=== PATIENT | female | born 1950 | race Caucasian/White ===

== ENCOUNTER 2022-03-25 08:39 | Outpatient (CLI) | payer MEDICARE, BC, SELFPAY | END 2022-03-25 08:40 | disposition home or self-care (01) | LOC: LAB 08:40 | PROVIDERS: PCP Family Medicine; Visit Provider Orthopaedic Surgery | DX: Z01.818 Encounter for other preprocedural examination (principal); Z20.822 Contact with and (suspected) exposure to COVID-19 | CPT/HCPCS: 36415; 86850; 86900; 86901 ==

== ENCOUNTER 2022-03-27 08:05 | Day surgery (SDC) | payer MEDICARE, BC, SELFPAY ==
[2022-03-27] VITALS (21 sets, daily range): BP systolic 80–134; BP diastolic 41–78; PULSE 49–79; RESP 14–18; TEMP 35.9–36.7; O2SAT 96–100; BMI 27.2
[2022-03-27] MEDS: ACETAMINOPHEN 500 MG TABLET 1000 MG PO ×2 (08:40→17:47)
[2022-03-27] MEDS: OXYCODONE (CR) 10 MG TAB.ER.12H PO (08:40)
[2022-03-27] MEDS: CELECOXIB 200 MG CAPSULE PO ×2 (08:40→21:19)
[2022-03-27] MEDS: SODIUM CHLORIDE 0.9 % (FLUSH) 10 ML SYRINGE IVF (08:43)
[2022-03-27] MEDS: LACTATED RINGERS 1000 ML 1,000 ML 100 ML IV ×2 (08:43→13:17)
[2022-03-27] MEDS: MIDAZOLAM HCL 1 MG/ML inj IVP (10:03)
[2022-03-27] MEDS: fentaNYL 100 MCG/2 ML inj IVP (10:03)
--- NOTE | 2022-03-27 10:11 | SUR.PREOP ---
TIME?OUT:?1000 PT/RN/MDA?VERIFICATION?OF?SURGICAL?SITE,?PROCEDURE,?AND?CONSENT OBTAINED?PRIOR?TO?INVASIVE?PROCEDURE.
--- NOTE | 2022-03-27 10:18 | W.PM.NB ---
Nerve Block Nerve Block Time Seen by Provider: 10:07 Date Seen: 03/27/22 Type of block requested by surgeon for post-operative analgesia: MAURILIO/LFCN Side: right Time out performed: Yes Verification of patient name: Yes Verification of date of : Yes Site marking: site marked Name of person performing procedure: Angel Continuous monitoring Was continuous monitoring of O2 sat, B/P, collections analyst, recorded every 15 minutes?: Yes Procedure Checklist: sterile prep, needles and gloves Ultrasound guided. Images saved: Yes Medications given in 5ml increments after negative aspiration: Ropivicaine %: 0.5 mL: 30 Needle gauge: 20 Decadron (mg): 10 Precedex (mcg): 25 Patient tolerated procedure well: Yes Additional comments: Needle noted below psoas tendon needle noted adjacent to LFCN Block Charges Block Charge (with Pro Fee): Other Periph Nerve Block Use of Ultrasound Machine for Block: Yes- US Guidance/pain block
--- NOTE | 2022-03-27 10:19 | W.ANESCHARGE ---
Anesthesia Charges Start Date/Time Anesthesia Start Date: 03/27/22 Anesthesia Start Time: 11:09 Stop Date/Time Anesthesia Stop Date: 03/27/22 Anesthesia Stop Time: 13:37 Summary Emergency: No Extremes of Age: Over 72-CPT [id number]
--- NOTE | 2022-03-27 11:00 | CRLHL7_ITS ---
For Patients: As a result of the Century Cures Act, medical imaging exams and procedure reports are released immediately into your electronic medical record. You may view this report before your referring provider. If you have questions, please contact your health care provider. INDICATION: Right hip arthroplasty. TECHNIQUE: Fluoroscopically guided intraoperative evaluation of the right hip. FINDINGS: Two portable spot images of the right hip were obtained intraoperatively. There is a right hip arthroplasty. The components are adequately aligned and well seated. 73.6 seconds fluoroscopy time utilized. IMPRESSION: 73.6 seconds fluoroscopy time utilized intraoperatively at the time of a right hip arthroplasty. Dictated by Kevan Bates MD @ 03/27/2022 2:08:31 PM (Electronically Signed)
[2022-03-27] MEDS: CEFAZOLIN 2 GM INJ IVP (11:18)
--- NOTE | 2022-03-27 13:05 | CRLHL7_ITS ---
For Patients: As a result of the Century Cures Act, medical imaging exams and procedure reports are released immediately into your electronic medical record. You may view this report before your referring provider. If you have questions, please contact your health care provider. INDICATION: Follow up a right hip arthroplasty. TECHNIQUE: AP view of the lower pelvis and hips. Cross-table lateral view of the right hip. FINDINGS: Right hip arthroplasty. The components are adequately aligned and well seated. Air within the soft tissues and joint space related to the surgery. There is an older left hip arthroplasty. IMPRESSION: Postsurgical change from a new right hip arthroplasty. The components are adequately aligned and well seated. Dictated by Kevan Bates MD @ 03/27/2022 2:09:37 PM (Electronically Signed)
--- NOTE | 2022-03-27 13:07 | PM.ORPRC ---
Procedure Note Date of procedure: 03/27/22 Procedure: PREOPERATIVE DIAGNOSIS: Right hip osteoarthritis POSTOPERATIVE DIAGNOSIS: Right hip osteoarthritis NAME OF OPERATION: Right total hip arthroplasty SURGEON: Gaudencio Rodríguez MD SAP BASIS ARCHITECT: Demond Burden PA-C, CALVIN Bran IMPLANTS: 1. [employer] [place] # 52 sector ingrowth cup 2. 36 x 52 +4 neutral polyethylene 3. [place] # 11, short neck collared ingrowth stem 4. 36 + 1.5 ceramic femoral head ANESTHESIA: General ESTIMATED BLOOD LOSS: 450 cc COMPLICATIONS: None SPECIMENS: None DRAINS: None PREOPERATIVE ANTIBIOTICS: Ancef 2 grams INDICATIONS: The patient is a 72-year-old with a longstanding history of severe, unrelenting right hip pain secondary to end-stage right hip osteoarthritis. Despite appropriate nonoperative management, including activity modification, use of an assist device, anti-inflammatories, [id number] pain medication, physical therapy and injections, they continue to have pain and disability. Operative intervention was offered. The risks, benefits and expected outcomes were discussed in detail. These included but were not limited to: Infection, bleeding, injury to blood vessel or nerve, venous thromboembolism. All questions were answered to their satisfaction. Use of an certified pathology assistant was necessary throughout the case for patient positioning and safety, soft tissue retraction and closure. PROCEDURE: The patient was placed supine on the [place] table. General anesthesia was administered. The certified pathology assistant made sure the patient was properly positioned. The right hip was prepped and draped in the usual sterile fashion. The image intensifier was brought in for a perfect AP pelvis and a perfect double tear drop AP view of each hip which were used for intraoperative templating with our fluoroscopic guide. An oblique incision was made 3 cm distal and 3 cm lateral to the anterior superior iliac spine. The certified pathology assistant retracted the soft tissues to protect them. Subcutaneous dissection was taken with electrocautery to the superficial fascia. The fascia was divided in line with the incision. Blunt dissection was carried medially to the tensor fascia paddy and sartorius interval. Deep dissection was carried with electrocautery. The circumflex vessels were cauterized and divided. The capsule was exposed and then divided in a T-fashion, tagged with #1 Ethibond sutures. Retractors were placed in the joint, held by the certified pathology assistant. The corkscrew was placed in the femoral head. The neck cut was made in the subcapital region. We made a second neck cut more distal. The napkin ring of bone was removed. The femoral head was removed intact. Acetabular retractors were placed, held by the certified pathology assistant. The labrum was sharply debrided. The capsule was released. The 43 mm reamer was used to the true medial wall. We then enlarged in 2 mm increments using the image intensifier for our reamer placement. We impacted the cup which had excellent purchase. We placed the hole eliminator and the polyethylene. Attention was then turned to the proximal femur. The limb was placed in 140 degrees of external rotation, maximum extension and adduction. A significant amount of time was spent releasing the capsule to allow us to deliver the femur into the wound and complete the femoral side safely. Retractors were held by the certified pathology assistant throughout the femoral preparation. The wash box operator and canal finder were used. Broaches were used to a stable size. The calcar reamer was used. Trial components were placed. The hip was reduced and was found to be stable with appropriate soft tissue tension. Length and offset had been nicely restored using the image intensifier and our fluoroscopic guide. Trial components were removed. The stem was impacted. We placed the femoral head. Again, the hip was reduced and was found to be stable with appropriate soft tissue tension. Length and offset had been nicely restored. The certified pathology assistant did a three minute dilute Betadine solution soak. The certified pathology assistant irrigated the wound with 3 liters of normal saline via pulse lavage. The certified pathology assistant repaired the anterior capsule with a #1 Vicryl and our previously placed Ethibond sutures. The certified pathology assistant closed the fascia over the tensor fascia paddy with a #1 PDO Stratafix, subcutaneous tissues with 2-0 Vicryl, skin with a running 3-0 Stratafix and glue. A dry dressing was applied by the certified pathology assistant. Sponge and needle counts were correct x 2. The patient tolerated the procedure well; there were no apparent complications. They were awakened and extubated in the operating room, sent to the Post-Anesthesia Care Unit in satisfactory condition. PLAN: 1. The patient will be mobilized with physical therapy, weight-bearing as tolerates 2. Xarelto x 5 days then aspirin x 30 days will be used for DVT prophylaxis 3. The patient will be discharged once medically appropriate
--- NOTE | 2022-03-27 13:48 | W.ANESCHARGE ---
Anesthesia Charges Start Date/Time Anesthesia Start Date: 03/27/22 Anesthesia Start Time: 11:09 Stop Date/Time Anesthesia Stop Date: 03/27/22 Anesthesia Stop Time: 13:37 Summary Emergency: No
[2022-03-27] MEDS: LACTATED RINGERS 1000 ML 1,000 ML 75 ML IV (14:50)
[2022-03-27] MEDS: CEFAZOLIN 1 GM in 0.9 % SODIUM CHLORIDE Mini-bag 100 ML IVPB (17:47)
--- NOTE | 2022-03-27 18:57 | P.IMCN_ITS ---
Date of Consult Patient: Diana Patient Consult date: 03/27/22 Requesting Physician: Orthopedics Primary Care Provider: Sunitha Schaefer, DO Consult Narrative Reason for consult: Factor V Leiden heterozygous, hypothyroidism Narrative: Yossi Crisostomo is a 72 year old female with history of factor 5 Leiden heterozygous, osteoporosis, and hypothyroidism who underwent an uneventful elective right total hip arthroplasty by Dr. Rodríguez today. She is doing very well postoperatively and has no complaints. Denies chest pain or shortness of breath or palpitations. She recalls being on anticoagulation briefly after previous joint surgeries. She has never had a DVT or PE. 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 Lives alone. Denies tob, EtOH, or recreational drug use. 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 FULL CODE. Highest level of school completed/degree received: Bachelor's degree Smoking Status: Never smoker Do you use any of these nicotine containing products: None How often do you have a drink containing alcohol: monthly or less Alcohol type: wine How many standard drinks containing alcohol do you have on a typical day: 1 or 2 How often do you have six or more drinks on one occasion: Never AUDIT-C Alcohol total score: 1 Non-prescribed substance use: denies use Caffeine: Yes (Pepsi or Coke, 12 oz/day) service: No Meds Home Medications and Allergies Home Medications Medication Instructions Recorded Confirmed Type calcium carbonate 500 mg calcium 500 mg PO BIDWM 02/19/22 03/27/22 History (1,250 mg) tablet cholecalciferol (vitamin D3) 25 25 mcg PO DAILY 02/19/22 03/27/22 History mcg (1,000 unit) tablet levothyroxine 88 mcg tablet 88 mcg PO DAILY 02/19/22 03/27/22 History lysine 500 mg tablet 500 mg PO DAILY 02/19/22 03/27/22 History alendronate 70 mg tablet 70 mg PO Q7D 02/20/22 03/27/22 History valacyclovir 1 gram tablet 1,000 mg PO DAILY PRN 02/20/22 03/27/22 History clobetasol 0.05 % topical ointment 1 applic topical 3XW PRN 03/26/22 03/27/22 History Allergies Allergy/AdvReac Type Severity Reaction Status Date / Time ciprofloxacin Allergy Verified 03/27/22 08:21 erythromycin base Allergy Verified 03/27/22 08:21 Macrolide Antibiotics Allergy Verified 03/27/22 08:21 Penicillins Allergy Verified 03/27/22 08:21 Quinolones Allergy Verified 03/27/22 08:21 Sulfa (Sulfonamide Allergy Verified 03/27/22 08:21 Antibiotics) gluten AdvReac Verified 03/27/22 08:21 Exam Narrative: Exam Narrative: General: No acute distress. Awake alert oriented x3. HEENT: Normocephalic atraumatic, pupils equally round and reactive to light and accommodation. Oropharynx clear. Mucous membranes are moist. No cervical lymphadenopathy, thyromegaly or carotid bruits. No JVD. Cardiovascular: Regular rate and rhythm. No murmurs, gallops, or rubs. Chest: No increased work of breathing. Clear to auscultation bilaterally. No crackles or wheezes. Abdomen: Bowel sounds present. Soft, nondistended, nontender. No hepatosplenomegaly or masses. Extremities: Right hip bandage is clean, dry, and intact. No edema, no cyanosis or clubbing. Skin: No jaundice, no pallor, no rashes. Const: Vital Signs, click to edit/add: Vital Signs - 24 hr 03/27/22 08:28 03/27/22 10:03 03/27/22 10:05 Temperature 98.0 F Pulse Rate 71 60 58 L Pulse Rate [Right Pulse Oximeter] Respiratory Rate 16 16 16 Blood Pressure 134/78 116/60 118/63 Blood Pressure [Le ft Arm] Pulse Oximetry 96 96 98 Oxygen Delivery Me thod Room Air Nasal Cannula Nasal Cannula Oxygen Flow Rate 2 2 03/27/22 10:10 03/27/22 10:20 03/27/22 10:30 Temperature Pulse Rate 53 L 50 L 49 L Pulse Rate [Right Pulse Oximeter] Respiratory Rate 16 16 16 Blood Pressure 99/50 L 81/41 L 80/42 L Blood Pressure [Le ft Arm] Pulse Oximetry 99 100 100 Oxygen Delivery Me thod Nasal Cannula Nasal Cannula Nasal Cannula Oxygen Flow Rate 2 2 2 03/27/22 13:33 03/27/22 13:40 03/27/22 13:45 Temperature 98.0 F Pulse Rate 61 72 66 Pulse Rate [Right Pulse Oximeter] Respiratory Rate 14 16 14 Blood Pressure 90/53 L 90/52 L 100/53 L Blood Pressure [Le ft Arm] Pulse Oximetry 96 96 96 Oxygen Delivery Me thod Room Air Room Air Room Air Oxygen Flow Rate 03/27/22 13:50 03/27/22 13:55 03/27/22 14:00 Temperature 97.8 F Pulse Rate 66 68 64 Pulse Rate [Right Pulse Oximeter] Respiratory Rate 14 18 14 Blood Pressure 100/53 L 92/57 L 98/52 L Blood Pressure [Le ft Arm] Pulse Oximetry 96 97 97 Oxygen Delivery Me thod Room Air Room Air Room Air Oxygen Flow Rate 03/27/22 14:05 03/27/22 14:15 03/27/22 14:30 Temperature 97.8 F 96.6 F L 96.6 F L Pulse Rate 70 70 Pulse Rate [Right Pulse Oximeter] 65 Respiratory Rate 16 16 16 Blood Pressure 100/50 L Blood Pressure [Le ft Arm] 105/60 109/76 Pulse Oximetry 96 97 Oxygen Delivery Me thod Room Air Room Air Room Air Oxygen Flow Rate 03/27/22 14:45 03/27/22 15:00 03/27/22 15:15 Temperature 96.6 F L 96.6 F L 96.6 F L Pulse Rate Pulse Rate [Right Pulse Oximeter] 64 71 78 Respiratory Rate 16 16 16 Blood Pressure Blood Pressure [Le ft Arm] 117/65 131/72 130/73 Pulse Oximetry 97 97 98 Oxygen Delivery Me thod Room Air Room Air Room Air Oxygen Flow Rate 0 0 0 03/27/22 15:45 03/27/22 15:45 Temperature Pulse Rate Pulse Rate [Right Pulse Oximeter] 78 78 Respiratory Rate 16 16 Blood Pressure Blood Pressure [Le ft Arm] 105/62 105/62 Pulse Oximetry 97 97 Oxygen Delivery Me thod Room Air Room Air Oxygen Flow Rate Labs Labs: Ordering Physician: Gaudencio Rodríguez M.D. Date of Service: 03/27/22 Procedure(s): XR hip RT 1V Accession Number(s): [id number] cc: Gaudencio Rodríguez M.D.; Sunitha Schaefer D.O.~ For Patients: As a result of the Cures Act, medical imaging exams and procedure reports are released immediately into your electronic medical record. You may view this report before your referring provider. If you have questions, please contact your health care provider. INDICATION: Right hip arthroplasty. TECHNIQUE: Fluoroscopically guided intraoperative evaluation of the right hip. FINDINGS: Two portable spot images of the right hip were obtained intraoperatively. There is a right hip arthroplasty. The components are adequately aligned and well seated. 73.6 seconds fluoroscopy time utilized. IMPRESSION: 73.6 seconds fluoroscopy time utilized intraoperatively at the time of a right hip arthroplasty. Dictated by Kevan Bates MD @ 03/27/2022 2:08:31 PM (Electronically Signed) Ordering Physician: Gaudencio Rodríguez M.D. Date of Service: 03/27/22 Procedure(s): XR hip RT post op Accession Number(s): [id number] cc: Gaudencio Rodríguez M.D.; Sunitha Schaefer D.O.~ For Patients: As a result of the Cures Act, medical imaging exams and procedure reports are released immediately into your electronic medical record. You may view this report before your referring provider. If you have questions, please contact your health care provider. INDICATION: Follow up a right hip arthroplasty. TECHNIQUE: AP view of the lower pelvis and hips. Cross-table lateral view of the right hip. FINDINGS: Right hip arthroplasty. The components are adequately aligned and well seated. Air within the soft tissues and joint space related to the surgery. There is an older left hip arthroplasty. IMPRESSION: Postsurgical change from a new right hip arthroplasty. The components are adequately aligned and well seated. Dictated by Kevan Bates MD @ 03/27/2022 2:09:37 PM (Electronically Signed) Assessment and Plan Assessment and plan (1) S/P total right hip arthroplasty: Status: Acute (2) Osteoarthritis of right hip: Status: Chronic (3) Factor 5 Leiden mutation, heterozygous: Status: Chronic (4) Osteoporosis: Problem comment: dexa 2007 osteopenia. Spine score -2.5 in 10/2010. Recheck 2013. Fairly stable. Recheck 3-5 years [place] Montgomery M.D. 01/14/2014 6:10 PM 12/29/19 Osteoporosis on dexa, recommend bisphosphonate treatment Status: Chronic (5) Hypothyroid: Status: Chronic (6) CAD (coronary artery disease): Problem comment: 03/20/22 CT cardiac calcium score 5 (all in LAD). Status: Chronic Assessment and Plan: F/u with PCP to discuss if medication is needed. For now follow a cardiac diet. (7) Lichen sclerosus: Status: Acute Plan Continue home meds. She is getting Xarelto 10 mg daily in the hospital for VTE prophylaxis. I recommend continuing this same for the entire postoperative period instead of switching to BID aspirin in 5 days.
--- NOTE | 2022-03-27 19:29 | PC.NURSE ---
End of shift-- Pleasant and cooperative, alert and oriented patient arrived from PACU at approximately 1415. VSS and pt is afebrile. SPO2 maintained greater than 90% on RA. She denied any pain. Dressing to right hip is C/D/I and CMS is WNL. LS CTA. BS+ x4 and pt denied any nausea. She was up to the chair and commode with assist of 1 and tolerated it very well. Report to MATTHEW Calle.
[2022-03-27] MEDS: SENNOSIDES 1 TAB TABLET 2 TAB PO (21:19)
[2022-03-28] MEDS: ACETAMINOPHEN 500 MG TABLET 1000 MG PO ×2 (00:04→06:26)
[2022-03-28] MEDS: CEFAZOLIN 1 GM in 0.9 % SODIUM CHLORIDE Mini-bag 100 ML IVPB ×2 (01:52→08:54)
[2022-03-28] MEDS: 0.9 % SODIUM CHLORIDE 250 ml IV (01:52)
[2022-03-28 03:00] VITALS: BP 105/54; PULSE 68; RESP 16; TEMP 36.7; O2SAT 95
--- NOTE | 2022-03-28 06:01 | PC.NURSE ---
Shift note: Pt i doing with A1, walker and GB for ambulation. Minimal pain reportd and tolerating very well. Pt started regular diet yesterday, no problem noted. Pt has pass gas but no BM. Saline locked and vitally stable.
[2022-03-28] MEDS: LEVOTHYROXINE 88 MCG TABLET PO (06:26)
[2022-03-28 06:32] LABS: Basophils Absolute Auto 0.01 K/uL (0.00-0.30); Basophils Percent Auto 0.1 % (0.0-3.0); Hematocrit 31.3 % (33.0-51.0); Hemoglobin* 10.5 gm/dL (12.0-16.0); Immature Granulocytes Abs Auto 0.02 K/uL (0.00-0.30); Immature Granulocytes Pct Auto 0.2 %; Mean Corpuscular HGB Conc 34 gm/dL (32-36); Mean Corpuscular Hemoglobin 33 pg (26-34); Mean Corpuscular Volume 100 fL (80-100); Monocytes Percent Auto 13.2 % (0.0-11.0); Neutrophils Percent Auto 74.5 % (42.0-72.0); Platelet Count* 182 K/uL (140-440); Red Blood Count 3.14 m/uL (4.00-5.20); White Blood Count* 10.77 K/uL (4.50-11.00)
[2022-03-28 06:37] LABS: Slide Review Reflex No
[2022-03-28 06:55] LABS: Potassium* 4.5 mmol/L (3.6-5.1); Sodium* 136 mmol/L (135-149)
[2022-03-28 06:58] LABS: Blood Urea Nitrogen* 15 mg/dL (7-30); Creatinine* 0.6 mg/dL (0.5-1.5); Estimated Glomerular Filt Rate 97 ml/min
[2022-03-28 07:00] VITALS: BP 114/65; PULSE 77; RESP 16; TEMP 36.7; O2SAT 97
[2022-03-28] MEDS: RIVAROXABAN 10 MG TABLET PO (08:54)
[2022-03-28] MEDS: CELECOXIB 200 MG CAPSULE PO (08:54)
[2022-03-28] MEDS: SENNOSIDES 1 TAB TABLET 2 TAB PO (08:54)
[2022-03-28] MEDS: CALCIUM CARBONATE 500 MG TABLET PO (08:54)
[2022-03-28] MEDS: SODIUM CHLORIDE 0.9 % (FLUSH) 10 ML SYRINGE 5 ML IVF (08:56)
[2022-03-28 09:35] VITALS: BP 100/50; PULSE 70; RESP 16; TEMP 36.7
--- NOTE | 2022-03-28 11:39 | PM.ORPN ---
Subjective Subjective Time Seen by Provider: 07:30 Date Seen: 03/28/22 Principal diagnosis: Status post right hip replacement Interval history: Yossi is comfortable this morning. She is discharging to home today. She has factor 5 Leiden heterozygous. Ortho Exam Narrative Exam Narrative: Alert and oriented x3. Patient is in no acute distress. Converses without labored breathing. Hearing is grossly intact. Ambulates with a walker. Examination of right lower extremity shows CMS intact. Dressing is intact. Ecchymosis is present. Mild soft tissue edema about the right hip. Bilateral calves are soft and nontender. Const Vital Signs, click to edit/add: Vital Signs - 24 hr 03/27/22 13:33 03/27/22 13:40 03/27/22 13:45 Temperature 98.0 F Pulse Rate 61 72 66 Pulse Rate [Right Pulse Oximeter] Respiratory Rate 14 16 14 Blood Pressure 90/53 L 90/52 L 100/53 L Blood Pressure [Left Arm] Pulse Oximetry 96 96 96 Oxygen Delivery Method Room Air Room Air Room Air Oxygen Flow Rate 03/27/22 13:50 03/27/22 13:55 03/27/22 14:00 Temperature 97.8 F Pulse Rate 66 68 64 Pulse Rate [Right Pulse Oximeter] Respiratory Rate 14 18 14 Blood Pressure 100/53 L 92/57 L 98/52 L Blood Pressure [Left Arm] Pulse Oximetry 96 97 97 Oxygen Delivery Method Room Air Room Air Room Air Oxygen Flow Rate 03/27/22 14:05 03/27/22 14:15 03/27/22 14:30 Temperature 97.8 F 96.6 F L 96.6 F L Pulse Rate 70 70 Pulse Rate [Right Pulse Oximeter] 65 Respiratory Rate 16 16 16 Blood Pressure 100/50 L Blood Pressure [Left Arm] 105/60 109/76 Pulse Oximetry 96 97 Oxygen Delivery Method Room Air Room Air Room Air Oxygen Flow Rate 03/27/22 14:45 03/27/22 15:00 03/27/22 15:15 Temperature 96.6 F L 96.6 F L 96.6 F L Pulse Rate Pulse Rate [Right Pulse Oximeter] 64 71 78 Respiratory Rate 16 16 16 Blood Pressure Blood Pressure [Left Arm] 117/65 131/72 130/73 Pulse Oximetry 97 97 98 Oxygen Delivery Method Room Air Room Air Room Air Oxygen Flow Rate 0 0 0 03/27/22 15:45 03/27/22 15:45 03/27/22 15:00 Temperature Pulse Rate Pulse Rate [Right Pulse Oximeter] 78 78 Respiratory Rate 16 16 16 Blood Pressure Blood Pressure [Left Arm] 105/62 105/62 Pulse Oximetry 97 97 Oxygen Delivery Method Room Air Room Air Oxygen Flow Rate 03/27/22 19:00 03/27/22 19:00 03/27/22 23:00 Temperature 97.6 F 97.6 F 97.6 F Pulse Rate Pulse Rate [Right Pulse Oximeter] 77 77 79 Respiratory Rate 16 16 16 Blood Pressure Blood Pressure [Left Arm] 123/69 123/69 121/68 Pulse Oximetry 97 97 97 Oxygen Delivery Method Room Air Room Air Room Air Oxygen Flow Rate 0 0 0 03/28/22 03:00 03/28/22 07:00 03/28/22 07:00 Temperature 98.1 F 98.0 F Pulse Rate Pulse Rate [Right Pulse Oximeter] 68 77 77 Respiratory Rate 16 16 16 Blood Pressure Blood Pressure [Left Arm] 105/54 L 114/65 Pulse Oximetry 95 97 Oxygen Delivery Method Room Air Room Air Oxygen Flow Rate 0 0 03/28/22 09:35 Temperature 98.1 F Pulse Rate 70 Pulse Rate [Right Pulse Oximeter] Respiratory Rate 16 Blood Pressure 100/50 L Blood Pressure [Left Arm] Pulse Oximetry Oxygen Delivery Method Oxygen Flow Rate Assessment and Plan Assessment and plan (1) S/P total right hip arthroplasty: Problem details: 03/27/2022 Status: Acute Assessment and Plan: Plan for discharge is today to home if they meet discharge criteria. DVT prophylaxis includes Xarelto 10 mg daily for total of 35 days, Leno stockings x1 month may remove for 1 hr per day, frequent ambulation Remove dressing 1 week. Observe wound and phone Orthopedics with any questions or concerns Use Ice on operative hip unrestricted. Return to clinic in 1 week with PA for a wound check Return to clinic in [address] Rodríguez Minimize narcotic use. Wean off and discontinue soon as possible. Activities as tolerated. No strenuous activity. Attend outpt PT (2) Osteoarthritis of right hip: Status: Chronic (3) Factor 5 Leiden mutation, heterozygous: Status: Chronic (4) Osteoporosis: Problem details: dexa 2008 osteopenia. Spine score -2.5 in 10/2010. Recheck 2013. Fairly stable. Recheck 3-5 years [place] Montgomery M.D. 01/14/2014 6:10 PM 12/29/19 Osteoporosis on dexa, recommend bisphosphonate treatment Status: Chronic (5) Hypothyroid: Status: Chronic (6) CAD (coronary artery disease): Problem details: 03/20/22 CT cardiac calcium score 5 (all in LAD). Status: Chronic (7) Lichen sclerosus: Status: Acute
--- NOTE | 2022-03-28 12:06 | PC.NURSE ---
pt educated on d/c plan. pain control regimen discussed. IV removed. pt denied concerns at d/c. pt d/c'd from m/s unit at 1120 to home.
== END 2022-03-28 11:20 | disposition home or self-care (01) ==
LOC: OR 08:08 → MEDSURG 08:15
PROVIDERS: PCP Family Medicine; Visit Provider Orthopaedic Surgery
PROC: (CPT 27130; principal; 2022-03-27 11:00)
DX: M16.11 Unilateral primary osteoarthritis, right hip (principal); M25.551 Pain in right hip; D68.51 Activated protein C resistance; M81.0 Age-related osteoporosis without current pathological fracture; E03.9 Hypothyroidism, unspecified; I25.10 Atherosclerotic heart disease of native coronary artery without angina pectoris; L90.0 Lichen sclerosus et atrophicus
CPT/HCPCS: 27130; 01214; 36415; 64450; 73501; 76942; 82565; 84132; 84295; 84520; 85025; 97116; 97161; 97165; 97535; 99100; A9270; C1776; J0690; J1100; J2250; J2704; J2795; J3010; J7050; J7120

== ENCOUNTER 2022-05-13 10:45 | Outpatient (RCR) | payer MEDICARE, BC, SELFPAY ==
--- NOTE | 2022-03-20 13:27 | PT.OPEX ---
PT [place] Outpatient Eval PT [facility] Outpatient Eval Start: 03/19/22 13:31 Freq: Status: Active Protocol: Document 03/20/22 08:46 YUDITH (Rec: 03/20/22 09:25 YUDITH [id number]) E-signed By Pat Day DPT Physical Therapy Outpatient Evaluation Insurance Information Recert Due Date 05/19/22 Insurance Name Medicare B,Blue Cross/[employer] Medical Diagnosis R hip osteoarthritis, pre-op/ post-op R BELEN DOS 03/27/22 Treating Diagnosis R hip pain, R hip stiffness, R knee pain, Decreased R hip ROM, decreased R hip strength, mild gait impairment and decreased gait tolerance Referring MD Rodríguez Subjective Subjective Pt here for pre-operative visit regarding planned R BELEN on 03/27/[address] Rodríguez. She has been having increasing R hip pain and difficulty walking over the past several years. She had L BELEN done in 2015 and knew R hip would need to be replaced as well eventually. L hip is functioning well at this time. She enjoys walking and can walk intermediate distances but lately her R knee is hurting more and it also aggravates R hip, limiting her distance. She wants to be able to walk longer distances and travel, like she used to do. Did take a trip last summer to [place] and [place] and was able to do a few longer walks, but nothing since then. She lives in independent living apartment alone. She has a FWW, cane, bath chair, crisis manager, shoe horn , sock aid, grab bars in her home. Can use elevator to access second level apartment. Will be having a friend or neighbor stay with her that first night and provide any help after surgery. Did not receive OP PT last time after L BELEN was done, but has visits scheduled post-operatively for OP PT this time. Pain Comments 05/10 R hip ache Date of Surgery (If applicable) 03/27/22 Current Work Status Retired Occupation Retired, from [employer] Preferred Name Marry Precautions Treatment Precautions/Contraindications Past L BELEN 2016 Weight Bearing Status Full Weight Bearing Therapy Limitations/Systems Review Not Limited Objective Range of Motion L hip ROM WNL's R/L UE ROM WNL's Strength L hip strength WNL's Swelling none Balance & Gait Shortened step length on L, decreased weight bear on R LE. Otherwise normal with no assistive device. Posture normal Assessment Assessment/Impression Pt presents for pre-operative BELEN visit per protocol as she will be having R BELEN on by Dr. Rodríguez. Exam findings demonstrate good UE strength and ROM, good L LE strength and ROM, and mild gait deviations due to R hip and knee pain currently. She has FWW and cane for after surgery, and adequate adaptive equipment for home use. She lives independently in an apartment and will have friend /neighbor stay with her after surgery for at least 1 night. She has many neighbors on her floor willing to help as well in her recovery. Pt was instructed on Pre-op HEP for BELEN protocol and given instruction fall prevention, post-operative recovery and progression in hospital stay and rehab. She has OP PT scheduled for after surgery. Skilled PT services are warranted prior to and after R BELEN surgery to minimize dysfunction and for pt to return to PLOF. Primary Functional Limitations walking Plan of Care Rehabilitation Potential Excellent Physical Therapy Goals Within 1 visit: 1. Pt will be educated on pre- operative HEP for hip strengthening and ROM. 2. Pt will be educated on post -operative BELEN protocol and progression, fall prevention. 3. Pt will demonstrate/perform stairs with 1 railing using correct post-op technique for R BELEN. Coordination/Communication With Referral Source Treatment Plan/Direct Interventions Gait Training,Joint Mobilization,Manual Therapy, Neuromuscular Re-ed,Self-Care/ Home Management,Therapeutic Activities,Therapeutic Exercises Frequency/Duration 1 pre-op visit with post-op evaluation to determine frequency and duration and new goals Patient Will Be Discharged From Therapy Completion of LTG(s),Skills Plateau,Independent w/HEP Evaluation Billing Untimed Code Treatment Minutes 20 Complexity Low Certification Information Initial Certification Date 03/20/22 Ending Certification Date 05/19/22 Provider Signature Shows Agreement With POC & Medical Necessity Physician Signature & Date Requested Please Sign/Date Here Physician Comment/Change : Physician NPI Number #
== END 2022-05-13 13:29 | disposition home or self-care (01) ==
PROVIDERS: PCP Family Medicine; Visit Provider Orthopaedic Surgery
DX: M16.11 Unilateral primary osteoarthritis, right hip (principal); Z51.89 Encounter for other specified aftercare
CPT/HCPCS: 97110; 97112; 97116; 97161; 97164

== ENCOUNTER 2024-12-18 12:50 | Outpatient (CLI) | payer MEDICARE, BC, SELFPAY | END 2024-12-18 12:51 | disposition home or self-care (01) | LOC: NFLDREF 12-23 16:09 | PROVIDERS: PCP Family Medicine; Referring Provider Family Medicine | DX: N30.00 Acute cystitis without hematuria (principal) | CPT/HCPCS: 87086 ==